=== PATIENT | female | born 1955 | race Caucasian/White ===

== ENCOUNTER 2017-09-29 12:45 | Outpatient (CLI) | payer MEDICARE ==
--- NOTE | 2017-09-29 15:45 | RAD ---
THORACIC SPINE RADIOGRAPHS THREE VIEWS 09/29/17 INDICATION: Thoracic back pain. FINDINGS: Prominent kyphosis of the thoracic spine is present. There is osteopenia. Moderate compressed deformi ty of the mid thoracic spine at the epicenter of the kyphosis is present, in addition to multilevel h eight loss and end plate concavity involving thoracic spine as well as imaged upper lumbar spine. The re is diffuse osseous demineralization. Mild levo curvature of the thoracic spine present. IMPRESSION: Multilevel compression deformities throughout the thoracic spine, as well as within the imaged upper lumbar spine. These findings are age indeterminate. The most pronounced moderate compressed deformity at the mid to lower thoracic spine does appear stable to prior radiograph, 01/21/15. Additional superi mposed acute injuries cannot be excluded. This could be further assessed with MRI, as necessary. POS: [facility]
--- NOTE | 2017-09-29 15:47 | RAD ---
LUMBAR SPINE 2 VIEWS: HISTORY: A 61-year-old female with acute bilateral thoracic back pain. FINDINGS: Severe bone demineralization. Moderate to severe vertical height loss of T12, L1, and L2 with mild v ertical height loss of L4 and L5 stable from 07/28/17. IMPRESSION: Stable multilevel compressed thoracic vertebrae. Significant diffuse bone demineralization. Stable appearance from 07/28/17. POS: [facility]
== END 2017-09-29 12:46 | disposition home or self-care (01) ==
LOC: RAD 12:45
PROVIDERS: ATTEND Family Medicine
DX: M54.6 Pain in thoracic spine (principal); M43.8X4 Other specified deforming dorsopathies, thoracic region
CPT/HCPCS: 72072; 72100

== ENCOUNTER 2018-03-02 10:16 | Outpatient (CLI) | payer MEDICARE | END 2018-03-02 10:17 | disposition home or self-care (01) | LOC: BICMAMMO 10:16 | PROVIDERS: ATTEND Family Medicine | DX: Z12.31 Encounter for screening mammogram for malignant neoplasm of breast (principal); Z13.820 Encounter for screening for osteoporosis; S22.080G Wedge compression fracture of T11-T12 vertebra, subsequent encounter for fracture with delayed healing; M81.0 Age-related osteoporosis without current pathological fracture | CPT/HCPCS: 77063; 77067; 77080 ==

== ENCOUNTER 2018-12-21 08:13 | Inpatient (IN) | payer MEDICARE ==
[2018-12-21] MEDS ORDERED: methylPREDNISolone Sod Succ/PF 125 MG/2 ML VIAL ONE (08:27)
[2018-12-21 08:38] LABS: #Eosinphils 0.7 thou/uL (0.0-0.7); #Lymphocytes 3.2 thou/uL (1.20-3.40); #Monocytes 0.5 thou/uL (0.11-0.59); #Neutrophils 2.7 thou/uL (1.40-6.50); %Basophils 0.6 % (0.0-1.0); %Eosinophils 9.8 % (0.0-10.0); %Lymphocytes 44.9 % (21.0-51.0); %Monocytes 6.9 % (0.0-10.0); %Neutrophils 37.8 % (42.0-75.0); Hemoglobin 12.8 g/dL (12.0-16.0); Mean Corpuscular HGB CONC 31.9 g/dL (32.0-36.0); Mean Corpuscular Hemoglobin 30.4 pg (27.0-31.0); Mean Corpuscular Volume 95.1 fL (78.0-98.0); Mean Platelet Volume 7.4 fL (7.4-10.4); Platelet Count 226 thou/uL (130-400); RBC Distribution Width 11.3 % (11.5-14.5); Red Blood Cell (RBC) Count 4.22 mill/uL (4.20-5.40); White Blood Cell (WBC) Count 7.2 thou/uL (4.8-10.8)
[2018-12-21 08:44] LABS: PTT 29.1 SEC (22.9-36.1); Prothrombin Time 13.3 SEC (12.0-14.7)
[2018-12-21] MEDS ORDERED: Albuterol Sulfate 2.5 mg/3 ml Neb ONE ×2 (08:58→08:59)
[2018-12-21 09:04] LABS: ALT (SGPT) 11 U/L (8-55); AST (SGOT) 34 U/L (5-34); Acetaminophen Less than 6.0 mcg/mL (10.0-30.0); Alcohol Less than 10 mg/dL (Less than 10); Alkaline Phosphatase 73 U/L (40-150); Anion Gap 18 mmol/L (10-20); BUN (Urea Nitrogen) 14 mg/dL (9.8-20.1); Bilirubin, Total 0.3 mg/dL (0.2-1.2); CK (CPK) 75 U/L (29-168); Calc. Creatinine Clearance 0 mL/min (70-130); Calcium 9.5 mg/dL (7.8-10.44); Carbon Dioxide 18 mmol/L (23-31); Chloride 105 mmol/L (98-107); Estimated GFR-MDRD 59; Globulin 2.9 g/dL (2.4-3.5); Glucose 203 mg/dL (80-115); Lipase 126 U/L (8-78); Potassium 4.1 mmol/L (3.5-5.1); Protein, Total 6.9 g/dL (6.0-8.3); Salicylate Less than 8.0 mg/dL (15.0-30.0); Sodium 137 mmol/L (136-145)
[2018-12-21 09:05] LABS: Bilirubin Negative (Negative); Blood, Urine Small (Negative); Clarity CLOUDY (Clear); Glucose, Urine (Dipstick) Negative (Negative); Leukocyte Small (Negative); Nitrite Positive (Negative); Protein, Urine (Dipstick) Negative (Neg-Trace); Specific Gravity, Urine 1.014 (1.002-1.036); Urobilinogen 0.2 mg/dL (0.2-1.0); pH, Urine 5.5 (5.0-9.0)
[2018-12-21 09:07] LABS: Pathc Cast-AUWi Flag 0.29 (0-2.49); RBC/HPF 0-3 HPF (0-3); Squamous Epithelial None Seen HPF (0-3); WBC/HPF 21-50 HPF (0-3)
--- NOTE | 2018-12-21 09:07 | RAD ---
SINGLE VIEW CHEST: HISTORY: Cyanosis and difficulty breathing. Respiratory distress. COMPARISON: 05/06/2014 FINDINGS: A single view of the chest shows a normal sized cardiomediastinal silhouette. This exam is limited s econdary to rotation. There is an endotracheal tube in good position, with its tip at the upper bord er of the clavicles. An NG tube courses off the inferior aspect of the film and is likely within the stomach. There is no evidence of consolidation, mass, or pleural effusion. IMPRESSION: Appropriate visualization of endotracheal tube and nasogastric tube. POS: [facility]
[2018-12-21] MEDS ORDERED: Fentanyl 20 mcg/ml (100 ml CADD) IV PRN (09:08)
[2018-12-21 09:10] LABS: Actual Bicarbonate (HCO3a) 21.3 mEq/L (22-28); Analyzer IN Cardio ER; Base Excess (BEa) -3.9 mEq/L (-2.0 to +3.0); CO2 Tension 39.6 mmHg (35.0-45.0); Calcium, Ionized 1.19 mmol/L (1.12-1.30); Carboxyhemoglobin (COHb) 0.3 gm% (0.0-3.0); Hemoglobin (Hb) 13.2 g/dL (12.0-16.0); O2 Tension (PaO2) 210.5 mmHg (> 80.0); Potassium - ABG Lab 3.82 mmol/L (3.70-5.30); pH, Arterial 7.35 (7.35-7.45)
[2018-12-21 09:15] LABS: Amphetamine Not Detected (NotDetected); Barbiturates Screen Not Detected (NotDetected); Benzodiazepine Screen Not Detected (NotDetected); Cocaine Metabolite Screen Not Detected (NotDetected); Medtox Control Line Valid? VALID (VALID); Medtox Reader # READER 1; Methadone Not Detected (NotDetected); Methamphetamine Not Detected (NotDetected); Opiate Screen Not Detected (NotDetected); Oxycodone Screen Not Detected (NotDetected); Phencyclidine (PCP) Not Detected (NotDetected); THC/Cannabinoid Screen Not Detected (NotDetected); Tricyclic Screen Not Detected (NotDetected)
[2018-12-21 09:18] LABS: Puncture Site RBA
[2018-12-21 09:21] LABS: Bacteria/HPF 4+ HPF (None Seen); Hyaline Casts/LPF 4-6 HYALINE CAST LPF (0-3 Hyaline)
--- NOTE | 2018-12-21 10:14 | CT ---
CT BRAIN WITHOUT CONTRAST: HISTORY: Altered mental status. FINDINGS: The ventricular and cisternal system shows fairly age appropriate change. There are no signs of intr acerebral hemorrhage or extraaxial fluid collection. The mastoid air cells are clear. There is exte nsive mucosal disease within the bilateral ethmoid and maxillary sinuses, with less pronounced change s of the sphenoid air cells. IMPRESSION: 1. No acute intracranial abnormalities. 2. Extensive sinus disease. POS: [facility]
[2018-12-21] MEDS ORDERED: ISOVUE-370 76%-LOCM 1 ML ONE (10:27)
[2018-12-21] MEDS ORDERED: Azithromycin 500 MG VIAL ONE (10:43)
[2018-12-21] MEDS ORDERED: cefTRIAXone\\ROCEPHIN 2 GM VIAL ONE (10:43)
[2018-12-21] MEDS ORDERED: PROPOFOL 0 ML ONE (11:11)
[2018-12-21] MEDS ORDERED: PROPOFOL 20 ML ONE (11:11)
--- NOTE | 2018-12-21 11:50 | CT ---
CTA CHEST WITH CONTRAST: Date: 12/21/18 Multiple axial tomograms obtained through the chest following angio protocol with multiplanar reconst ruction and 3D postprocessing. INDICATION: Hypoxia. Shortness of breath. FINDINGS: Pulmonary arteries show adequate opacification. No evidence of pulmonary embolus identified. Thoracic aorta is unremarkable with no evidence of dissection or aneurysm. There is abnormal soft tissue density in the left hilum, which encompasses left lower lobe bronchus, and there is streaky alveolar consolidation/infiltrate extending from the infrahilar region on the le ft posteriorly into the left lower lobe posterior lung base. The density in the right hilar region is worrisome for neoplasm. Consider bronchoscopy as this lesion does encompass and narrow the right low er lobe bronchus. Images through upper abdomen show low density lesions in the liver which were present previously and suggest cyst. IMPRESSION: 1. No evidence of pulmonary embolus. 2. Abnormal soft tissue density in the left hilar region, worrisome for mass or adenopathy. This sof t tissue density does encompass and narrow a left lower lobe bronchus. There is peripheral infiltrate and/or atelectasis extending into the posterior left lower lobe. Consider bronchoscopy. POS: [facility]
[2018-12-21] MEDS ORDERED: Ondansetron PF 4 MG/2 ML Vial IVP PRN (12:18)
[2018-12-21] MEDS ORDERED: Ondansetron ODT 4 MG TAB PO PRN (12:18)
[2018-12-21 12:39] VITALS: BMI 27.3
[2018-12-21 12:48] LABS: Lactic Acid 3.7 mmol/L (0.5-2.2)
[2018-12-21] MEDS ORDERED: Sodium Chloride 0.9% 1,000 ML IV SCH (13:30)
[2018-12-21] MEDS ORDERED: Midazolam HCl 2 mg/2 ml Vial ONE (15:22)
[2018-12-21] MEDS ORDERED: SYSTANE 3.5 GM TUBE EA EYE PRN (15:27)
[2018-12-21] MEDS ORDERED: Ventilator Sedation Protocol 1 EACH FS SCH (15:30)
[2018-12-21] MEDS ORDERED: Midazolam HCl 2 mg/2 ml Vial SLOW IVP SCH (15:30)
[2018-12-21] MEDS ORDERED: DISCONTINUE PREVIOUS NARCOTIC PAIN MEDICATIONS AND BENZODIAZEPINES FS SCH (15:46)
[2018-12-21] MEDS ORDERED: Fentanyl BOLUS 250 ML IVPB PRN ×2 (15:46→15:51)
[2018-12-21] MEDS ORDERED: Propofol 1,000 MG/100 ML VIAL IV PRN (15:46)
[2018-12-21] MEDS ORDERED: fentaNYL Citrate/PF 2,000 MCG in Sodium Chloride 0.9% 60 ML IV SCH ×2 (15:46→16:00)
[2018-12-21] MEDS ORDERED: Propofol BOLUS 1,000 MG/100 ML VIAL IV PRN (15:46)
[2018-12-21] MEDS ORDERED: Lorazepam 2 MG/ML VIAL SLOW IVP PRN (15:46)
[2018-12-21] MEDS ORDERED: Morphine 2 MG/ML SYRINGE SLOW IVP PRN (15:49)
--- NOTE | 2018-12-21 16:00 | CON ---
DATE OF CONSULTATION: 12/21/2018 SERVICE: Pulmonary Medicine. REASON FOR CONSULT: Respiratory failure. HISTORY OF PRESENT ILLNESS: The patient is a 63-year-old white female with past medical history significant for asthma. For the last 2-3 months, she has had increasing cough and congestion. She has had nasal discharge. She presented to the emergency department because she had a sudden increase in respiratory disturbances. She has been relying basically on p.r.n. medications like DuoNeb. She has been out of her long-acting controlling medication (Symbicort). They sent a refill request out and that medicine should be in the mail, but did not arrive quickly enough. She subsequently developed so much failure that EMS services were contacted. When they got there, her saturations were in the 60s. As such, she was intubated and brought to the emergency department. Blood pressures remained stable throughout. She got some empiric antibiotics, nebulized medications, and some steroids. She is currently intubated. She is able to follow some simple commands. She did not require any sedation, which is quite remarkable. She denies any current fevers or chills. She talked to us about some of her different allergies. She has an allergy to Valium. That being said, it only causes hallucination. We will need to clarify her allergies when she is out of the hospital this time around. Our therapeutic options are actually becoming quite limited because of her histories. PAST MEDICAL HISTORY: 1. Asthma. 2. Hypertension. 3. Dyslipidemia. 4. Chronic back pain. 5. Degenerate joint disease. PAST SURGICAL HISTORY: 1. Cholecystectomy. 2. Colonoscopy. FAMILY HISTORY: Noncontributory. SOCIAL HISTORY: Negative for alcohol, tobacco, or illicit drug use. She is a lifelong nonsmoker. She has no exposure to chemicals, dust, asbestos, or tuberculosis. ALLERGIES: MULTIPLE ALLERGIES ARE LISTED INCLUDING CIPRO, CLINDAMYCIN, CODEINE, PENICILLIN, VICODIN, AMLODIPINE, LISINOPRIL, LOSARTAN, AND VALIUM. MEDICATIONS: List of her inpatient medications was reviewed. No specific updates were made at this time. REVIEW OF SYSTEMS: Review of systems is cannot be obtained as the patient is currently intubated under the influence of some sedation. PHYSICAL EXAMINATION: VITAL SIGNS: Afebrile, pulse 111, blood pressure 132/75, respirations 15, saturation 99% on 21% FiO2 and a PEEP of 5. GENERAL: The patient is somnolent. She is in no apparent distress. LUNGS: Excellent air entry. There is no prolonged expiratory phase or wheezing present. There are extensive rhonchi noted. HEART: Tachycardic. Regular. ABDOMEN: Soft, nontender, nondistended. Bowel sounds are positive. MUSCULOSKELETAL: No cyanosis or clubbing. There is no pitting in the bilateral lower extremities. NEUROLOGIC: Grossly nonfocal. LABORATORY DATA: WBC 7.2, hemoglobin 12.8, and platelets 226,000. INR 1.0. PH 7.35, pCO2 40, PO2 210. This was on 50% FiO2 at that time. Basic metabolic profile and liver function studies are otherwise unremarkable. Lactate was 5.5, but was downtrending at 3.7. Lipase 126. Urinalysis is positive for white blood cells of 21-50. Nitrites are positive. Leukocyte esterase is minimal. Toxicology was unremarkable including urine drug screen, alcohol, acetaminophen, and salicylates. Interestingly, methadone was not detected. IMAGIN. CT of the brain demonstrates no acute intracranial abnormality. 2. Chest x-ray demonstrates volume loss in the left base. She has a left mainstem bronchus endobronchial irregularity. ASSESSMENT: 1. Asthma with acute exacerbation. 2. Left mainstem bronchus lesion on CT scan. 3. Acute hypoxic respiratory failure, resolved. 4. Severe sepsis. 5. Sinusitis. DISCUSSION AND PLAN: We will proceed with bronchoscopy. This is primarily for diagnostic and possibly therapeutic purposes. We will send the sample off for Gram stain and culture. Otherwise, supportive measures will be continued. We will treat her sinusitis with fluoroquinolone if she can tolerate it. Pulmonary/Critical Care will continue to follow along. Multiple ventilator adjustments have been made in order to improve on the patient comfort. We will consider extubating her tomorrow morning. CRITICAL CARE TIME: 30 minutes. Job ID: [id number] [facility]
--- NOTE | 2018-12-21 16:31 | HP ---
CHIEF COMPLAINT: Shortness of breath. HISTORY OF PRESENT ILLNESS: This patient is a 63-year-old female, who presented via the emergency department. This patient reports that she has been having chronic shortness of breath for an extended period of time and intermittently use some home oxygen. The etiology of her lung disease is not fully clear, but apparently she has some type of COPD syndrome, although she has never smoked and the family is unaware of her ever having any significant prior toxic or chemical exposures. The patient started coughing significantly about a month ago. During that time, she has been producing sputum, occasionally discolored, occasionally clear. She has not had significant fevers, but has been short of breath. They saw Dr. Altman, who has given her steroid shots a couple of different times and ordered some Symbicort, although that never arrived at the patient's home before she became too ill. She subsequently became worse today and EMS was called. When they arrived, the patient was very tachypneic, had some respiratory distress. She was somewhat cyanotic and O2 sats were in the 60s and the patient was intubated in the field. REVIEW OF SYSTEMS: The patient's does report that she has had significant weight loss over the past couple of months, although he reports she has been actually eating quite well. Overall, her appetite has been good. The remainder of the review of systems is limited because of the patient's intubated status. However, the family is unaware of any other problems. PAST MEDICAL HISTORY: Notable for degenerative disk disease, for which she wear some type spine. She has hypertension, hyperlipidemia for which she takes no medications. She also has the above-mentioned COPD. PAST SURGICAL HISTORY: , cholecystectomy, knee surgery, and kidney stone removal. FAMILY HISTORY: The patient's biological father many years ago with no specific known medical problems. Mother had cancer, which they believe may have been in her stomach and she in 2007. Her daughters had thyroid cancer. SOCIAL HISTORY: The patient is a nonsmoker, nondrinker, and nondrug user. She is . She is full code. Her and daughter are present to be her surrogate decision makers. ALLERGIES: VICODIN, AMLODIPINE, CIPROFLOXACIN, CLINDAMYCIN, CODEINE, DIAZEPAM, FENTANYL, FLUTICASONE FROM [facility], HYDROCODONE, LISINOPRIL, MORPHINE, PENICILLINS, AND VILANTEROL FROM THE [facility]. CURRENT MEDICATIONS: 1. Simvastatin 10 mg at bedtime. 2. B12 of 500 mcg daily. 3. Ventolin inhaler. 4. Lasix 20 daily. 5. Coreg 10 mg p.o. daily. 6. Hydralazine 10 mg p.o. t.i.d. 7. Methadone 2.5 mg daily. 8. Nexium 40 mg daily. 9. DuoNeb q.i.d. 10. Symbicort 2 puffs two inhalations b.i.d. 11. Albuterol HFA. PHYSICAL EXAMINATION: VITAL SIGNS: Temperature 97.4, pulse 109, respirations 12, O2 sat is 91%, and blood pressure 123/86. GENERAL APPEARANCE: Age-appropriate female. She is on the ventilator. She is in no distress. She is awake and able to interact and communicate with nods. HEENT: Pupils are reactive. NECK: Supple and symmetric. HEART: Regular rate and rhythm without murmurs, gallops, or rubs. LUNGS: Clear bilaterally, although exam is somewhat limited. There are no wheezes or rales noted. ABDOMEN: Soft, nontender, and nondistended. EXTREMITIES: Warm and dry with no cyanosis, clubbing, or edema. NEUROLOGICAL: The patient appears to be fully intact with no focal deficits. PSYCH: The patient is managed to be quite calm and appropriate on the ventilator. LABORATORY DATA: White count 7.2, hemoglobin 12.8, and platelets 226. INR is 1.0. Blood gas shows pH of 7.35, pCO2 of 39.6, and pO2 of 210. Sodium 137, potassium 4.1, chloride 105, CO2 of 18, BUN 14, creatinine 0.95, glucose 203. Lactic acid 5.5. AST 34, ALT 11. Troponin 0.014. Albumin 4.0. Lipase is 126. Urinalysis shows white counts 21 to 50, red cells 0 to 3, small leukocyte esterase, and positive nitrites. Tox screen is negative. IMAGING DATA: Chest x-ray, tube is in appropriate positioning as is NG tube. CT angio of the chest reveals no pulmonary embolus. There appears to be something of a soft tissue mass occluding the left lower lobe bronchus with postobstructive infiltrate. CT scan of the brain, no acute intracranial abnormalities. Extensive sinus disease. IMPRESSION AND PLAN: 1. Acute hypoxic respiratory failure. The patient is on ventilator. Pulmonary Critical Care following. The likely source is the chronic lung disease exacerbated by left lower lobe occlusion or bronchial occlusion. 2. Left lower lobe mass, on CT scan cannot be confirmed. May need bronchoscopy in order to further elucidate. 3. Postobstructive pneumonia. Continue with azithromycin and Rocephin for now. 4. Chronic lung disease, unclear etiology, but appears to be some type of obstructive pulmonary disease. 5. Continue nebs, steroids, and oxygen as needed. 6. History of hyperlipidemia. We will continue those medications when she is appropriately able to take p.o.'s. 7. Hypertension. We will continue to monitor. May need to treat IV for the time being. Job ID: [id number]
[2018-12-21] MEDS: methylPREDNISolone Sod Succ 40 MG VIAL IVP SCH (17:29)
--- NOTE | 2018-12-21 18:00 | OP ---
DATE OF PROCEDURE: 12/21/2018 SERVICE: Pulmonary Medicine. PROCEDURE PERFORMED: Fiberoptic bronchoscopy with; 1. Visual airway inspection. 2. Bronchoalveolar lavage from the left lung. PREPROCEDURE DIAGNOSES: 1. Pulmonary infiltrate. 2. Endobronchial irregularity. POSTPROCEDURE DIAGNOSES: 1. Pulmonary infiltrate. 2. Mucus plugging of the left lower lobe bronchus. MEDICATION USED: Versed 6 mg IV push x1. PREANESTHESIA ASSESSMENT: H and P had been performed. The patient's medications and allergies were reviewed. Informed consent was obtained after discussing the risks, benefits, and rationale for performing the procedure with the patient's immediate family member. DESCRIPTION OF PROCEDURE: A time-out was performed identifying the correct procedure and patient with name and date of . A diagnostic fiberoptic bronchoscope was introduced through the 7.0 endotracheal tube. The bronchoscope was advanced to the trachea, where multiple aliquots of saline were administered to the bilateral lung boland. After significant suctioning of diffuse mucus plugs, tracheobronchial tree inspection was carried out with clear identification of the right upper lobe, right middle lobe, right lower lobe, left upper lobe, lingula, and left lower lobe. No endobronchial disease was identified. I paid careful attention to the left lower lobe bronchus. Hemostasis was verified, and the bronchoscope was subsequently removed from the patient. FINDINGS: 1. No endobronchial disease was identified. 2. Secretions were moderate, but quite thick. SPECIMENS OBTAINED: BAL for Gram stain and culture from the left lower lobe. COMPLICATIONS: None. ESTIMATED BLOOD LOSS: None. DISPOSITION: The patient will recover in the ICU on mechanical ventilation. Job ID: [id number]
[2018-12-21] MEDS: Famotidine/PF 20 mg/2ml Vial SLOW IVP SCH (19:18)
[2018-12-21] MEDS ORDERED: Prevnar 13-Val Conj/PF 0.5 ML SYRINGE IM ONE (21:00)
[2018-12-22] MEDS ORDERED: Ondansetron PF 4 MG/2 ML Vial SLOW IVP PRN (01:54)
[2018-12-22] MEDS ORDERED: HYDROmorphone 0.5 MG/0.5 ML SYRINGE SLOW IVP PRN (01:55)
[2018-12-22] MEDS: methylPREDNISolone Sod Succ 40 MG VIAL IVP SCH ×2 (05:07)
[2018-12-22 05:44] LABS: #Lymphocytes 0.9 thou/uL (1.20-3.40); #Monocytes 0.1 thou/uL (0.11-0.59); #Neutrophils 11.6 thou/uL (1.40-6.50); %Monocytes 0.6 % (0.0-10.0); %Neutrophils 92.5 % (42.0-75.0); Hemoglobin 13.1 g/dL (12.0-16.0); Mean Corpuscular Hemoglobin 30.3 pg (27.0-31.0); Mean Corpuscular Volume 91.8 fL (78.0-98.0); Mean Platelet Volume 7.2 fL (7.4-10.4); Platelet Count 239 thou/uL (130-400); RBC Distribution Width 11.2 % (11.5-14.5); Red Blood Cell (RBC) Count 4.31 mill/uL (4.20-5.40); White Blood Cell (WBC) Count 12.6 thou/uL (4.8-10.8)
[2018-12-22 06:01] LABS: ALT (SGPT) 14 U/L (8-55); AST (SGOT) 39 U/L (5-34); Albumin 3.8 g/dL (3.4-4.8); Alkaline Phosphatase 69 U/L (40-150); Anion Gap 17 mmol/L (10-20); BUN (Urea Nitrogen) 12 mg/dL (9.8-20.1); Bilirubin, Total 0.4 mg/dL (0.2-1.2); Calc. Creatinine Clearance 74 mL/min (70-130); Calcium 9.4 mg/dL (7.8-10.44); Carbon Dioxide 17 mmol/L (23-31); Chloride 108 mmol/L (98-107); Estimated GFR-MDRD 66; Glucose 119 mg/dL (80-115); Potassium 3.7 mmol/L (3.5-5.1); Protein, Total 6.8 g/dL (6.0-8.3); Sodium 138 mmol/L (136-145)
[2018-12-22] MEDS: Famotidine/PF 20 mg/2ml Vial SLOW IVP SCH (08:57)
[2018-12-22] MEDS: Enoxaparin Sodium 40 MG/0.4 ML SYRINGE SC SCH (08:57)
[2018-12-22] MEDS ORDERED: Azithromycin 500 MG in Sodium Chloride 0.9% 250 ML 250 ML IVPB SCH (10:00)
--- NOTE | 2018-12-22 10:49 | PRG ---
DATE OF SERVICE: 12/22/2018 SERVICE: Pulmonary Medicine. INTERVAL HISTORY: The patient has done absolutely remarkable overnight. Her lungs have opened up very nicely. She does not have nearly as long as a prolonged expiratory phases, we noted on mechanical ventilator yesterday. She cannot provide any additional elements of the history. That being said, she indicates that she feels like she is breathing for the most part fairly comfortably. Denies any current chest pain, nausea, vomiting, fevers, or chills. There were no overnight events. PHYSICAL EXAMINATION: VITAL SIGNS: Afebrile, pulse 95, blood pressure 116/65, respirations 12, saturation 100% on 31% FiO2, and a PEEP of 5. GENERAL: The patient is intubated and sedated. There is a prolonged expiratory phase still. Polyphonic wheezing is noted. No crackles or rhonchi appreciated. HEART: Normal rate, regular. ABDOMEN: Soft, nontender, nondistended. Bowel sounds are positive. MUSCULOSKELETAL: No cyanosis or clubbing. No pitting in the bilateral lower extremities. NEUROLOGIC: Grossly nonfocal. LABORATORY DATA: WBC 12.6, hemoglobin 13.1, and platelets 239,000. INR 1.0. PH 7.35, pCO2 39, PO2 210. Basic metabolic profile is otherwise unremarkable with bicarb is stable at 17, anion gap stable at 17. Liver function studies are completely unremarkable. Urine culture is growing E. coli. Blood culture x2 and respiratory culture negative to date. ASSESSMENT: 1. Asthma with acute exacerbation, resolving. 2. Endobronchial mucus plugging, status post bronchoscopy, resolved. 3. Acute hypoxic respiratory failure, resolved. 4. Urinary tract infection secondary to Escherichia coli. 5. Sinusitis based on CT scan. DISCUSSION AND PLAN: We will continue our empiric antibiotic that should cover both our E coli organism and sinusitis. We will tailor our antibiotic choice to the sensitivities that result. I will continue her antibiotics, nebulized medications, and steroids. Pulmonary Critical Care will continue to follow along. I will give her a spontaneous breathing trial after a sedation holiday. If she meets criteria, extubation will be considered. CRITICAL CARE TIME: 30 minutes. Job ID: [id number]
[2018-12-22] MEDS ORDERED: cefTRIAXone\\ROCEPHIN 1 GM in Sodium Chloride 0.9% 100 ML IVPB SCH (11:00)
[2018-12-22] MEDS ORDERED: predniSONE 20 MG TAB PO SCH (11:15)
[2018-12-22] MEDS ORDERED: NIFEdipine XL 30 MG TAB PO SCH (11:15)
--- NOTE | 2018-12-22 13:28 | PDOC.PN ---
- Subjective Encounter Start Date: 12/22/18 Encounter Start Time: 11:00 Extubated. Throat hurts mildly. Otherwise feeling generally well. - Objective Resuscitation Status - Order Detail: 12/21/18 13:23 Resuscitation Status Routine Resuscitation Status: FULL: Full Resuscitation Discussed with: Patient's family Vital Signs & Weight: Vital Signs (12 hours) Pulse Resp BP Pulse Ox 12/22/18 13:01 106 H 22 H 99 12/22/18 11:24 113 H 128/67 12/22/18 09:55 95 12/22/18 09:30 113 H 128/67 12/22/18 08:00 14 12/22/18 07:41 93 120/67 12/22/18 07:30 100 12/22/18 06:00 13 12/22/18 04:00 13 12/22/18 02:42 132 H 12/22/18 02:00 11 L Weight Weight 158 lb 11.725 oz Most Recent Monitor Data Heart Rate from ECG 109 NIBP 119/77 NIBP BP-Mean 91 Respiration from ECG 25 SpO2 99 I&O: 12/21/18 12/22/18 12/23/18 06:59 06:59 06:59 Intake Total 695.7 50 Output Total 1880 230 Balance -1184.3 -180 Result Diagrams: 12/22/18 05:34 12/22/18 05:34 Phys Exam - Physical Examination Constitutional: NAD Respiratory: no rales, no rhonchi Minimal scattered wheezes Cardiovascular: RRR, no significant murmur Gastrointestinal: soft, non-tender, no distention, positive bowel sounds Musculoskeletal: no edema Neurological: non-focal Psychiatric: normal affect, A&O x 3 Dx/Plan (1) Acute and chronic respiratory failure with hypoxia Code(s): J96.21 - ACUTE AND CHRONIC RESPIRATORY FAILURE WITH HYPOXIA Status: Acute (2) Mucus plugging of bronchi Code(s): J98.09 - OTHER DISEASES OF BRONCHUS, NOT ELSEWHERE CLASSIFIED Status : Acute (3) Asthma Code(s): J45.909 - UNSPECIFIED ASTHMA, UNCOMPLICATED Status: Acute (4) Sinusitis Code(s): J32.9 - CHRONIC SINUSITIS, UNSPECIFIED Status: Acute (5) E. coli UTI Code(s): N39.0 - URINARY TRACT INFECTION, SITE NOT SPECIFIED; B96.20 - UNSP ESCHERICHIA COLI THE CAUSE OF DISEASES CLASSD ELSWHR Status: Acute - Plan * Doing well. Extubated this morning after mucous plug addressed endoscopically yesterday. * E coli on Ucx. Levaquin. * Sinusitis. Levaquin. * Wean oxygen and increase activity and diet as tolerated. * Outpatient follow up to treat vernon.
[2018-12-23] MEDS: Enoxaparin Sodium 40 MG/0.4 ML SYRINGE SC SCH (08:48)
[2018-12-23] MEDS: NIFEdipine XL 30 MG TAB PO SCH (08:48)
[2018-12-23] MEDS: predniSONE 20 MG TAB PO SCH (08:48)
[2018-12-23] MEDS: Acetaminophen 500 MG TAB PO PRN (11:18)
--- NOTE | 2018-12-23 13:37 | PDOC.PN ---
- Subjective Encounter Start Date: 12/23/18 Encounter Start Time: 13:36 Feeling better. Had an episode of SOB this morning with sats at 88%. Improved after breathing treatment. Good now. Looking forward to a shower. - Objective Resuscitation Status - Order Detail: 12/21/18 13:23 Resuscitation Status Routine Resuscitation Status: FULL: Full Resuscitation Discussed with: Patient's family Vital Signs & Weight: Vital Signs (12 hours) Temp Pulse Resp BP Pulse Ox 12/23/18 11:29 98.4 F 88 18 114/75 94 L 12/23/18 09:49 93 L 12/23/18 08:29 95 12/23/18 08:28 84 16 12/23/18 08:25 98.2 F 85 20 120/75 93 L 12/23/18 05:18 98 20 98 12/23/18 04:48 95 12/23/18 04:46 114 H 24 H 88 L 12/23/18 04:00 97.7 F 98 22 H 129/82 91 L Weight Weight 161 lb Most Recent Monitor Data Heart Rate from ECG 97 NIBP 126/77 NIBP BP-Mean 93 Respiration from ECG 23 SpO2 95 I&O: 12/22/18 12/23/18 12/24/18 06:59 06:59 06:59 Intake Total 695.7 321 Output Total 1880 925 Balance -1184.3 -604 Result Diagrams: 12/22/18 05:34 12/22/18 05:34 Phys Exam - Physical Examination Constitutional: NAD Respiratory: no wheezing, no rales, no rhonchi Slightly diminished at bases (kyphotic) Cardiovascular: RRR, no significant murmur, no rub Gastrointestinal: soft, non-tender, no distention, positive bowel sounds Musculoskeletal: no edema Thoracic kyphosis Neurological: non-focal Psychiatric: normal affect, A&O x 3 Dx/Plan (1) Acute and chronic respiratory failure with hypoxia Code(s): J96.21 - ACUTE AND CHRONIC RESPIRATORY FAILURE WITH HYPOXIA Status: Resolved (2) Mucus plugging of bronchi Code(s): J98.09 - OTHER DISEASES OF BRONCHUS, NOT ELSEWHERE CLASSIFIED Status : Resolved (3) Asthma Code(s): J45.909 - UNSPECIFIED ASTHMA, UNCOMPLICATED Status: Acute (4) Sinusitis Code(s): J32.9 - CHRONIC SINUSITIS, UNSPECIFIED Status: Acute (5) E. coli UTI Code(s): N39.0 - URINARY TRACT INFECTION, SITE NOT SPECIFIED; B96.20 - UNSP ESCHERICHIA COLI THE CAUSE OF DISEASES CLASSD ELSWHR Status: Acute - Plan * DC Bravo. * Ambulate. * DC Levaquin as E coli is resistant. Rocephin. * Will need oral antibiotic option at discharge. Likely cephalosporin to cover sinusitis and E. coli. * Likely discharge in am.
[2018-12-23] MEDS: cefTRIAXone\\ROCEPHIN 1 GM in Sodium Chloride 0.9% 100 ML IVPB SCH (16:43)
--- NOTE | 2018-12-23 20:14 | PRG ---
DATE OF SERVICE: 12/23/2018 SUBJECTIVE: Pulmonary Medicine. INTERVAL HISTORY: The patient is doing fine from respiratory standpoint. Breathing comfortably. There has been no interval change to her condition. Her strength seems to be improving a little bit. Otherwise, she does not have any specific complaints. PHYSICAL EXAMINATION: VITAL SIGNS: Afebrile. Pulse 87, blood pressure 116/69, respirations 18, saturation 95% on room air. GENERAL: The patient is awake and alert, in no apparent distress. LUNGS: Decent air entry. There is a little bit of rhonchi. No prolonged expiratory phase or wheezing is appreciated. HEART: Normal rate, regular. ABDOMEN: Soft, nontender, nondistended. Bowel sounds are positive. MUSCULOSKELETAL: No cyanosis or clubbing. No pitting in the bilateral lower extremities. NEUROLOGIC: Grossly nonfocal. ASSESSMENT: 1. Asthma with acute exacerbation, resolved. 2. Endobronchial mucus plug, status post bronchoscopy, resolved. 3. Acute hypoxic respiratory failure, resolved. 4. Urinary tract infection secondary to Escherichia coli. 5. Sinusitis, based on recent CT of the head. DISCUSSION AND PLAN: The patient continues to do quite well. We will continue our steroids, nebulized medications, and antibiotics. We are going to continue our mobilization efforts through time. I will repeat laboratories tomorrow morning. If everything looks fantastic, she may get considered for discharge in the morning. Job ID: [id number]
[2018-12-24 06:04] LABS: #Basophils 0.1 thou/uL (0.0-0.2); #Lymphocytes 1.5 thou/uL (1.20-3.40); #Monocytes 0.4 thou/uL (0.11-0.59); %Basophils 0.9 % (0.0-1.0); %Eosinophils 0.2 % (0.0-10.0); %Lymphocytes 21.5 % (21.0-51.0); %Monocytes 5.2 % (0.0-10.0); %Neutrophils 72.2 % (42.0-75.0); Hemoglobin 12.3 g/dL (12.0-16.0); Mean Corpuscular HGB CONC 32.8 g/dL (32.0-36.0); Mean Corpuscular Hemoglobin 30.8 pg (27.0-31.0); Mean Corpuscular Volume 93.8 fL (78.0-98.0); Mean Platelet Volume 7.5 fL (7.4-10.4); Platelet Count 203 thou/uL (130-400); RBC Distribution Width 11.5 % (11.5-14.5); Red Blood Cell (RBC) Count 3.98 mill/uL (4.20-5.40); White Blood Cell (WBC) Count 6.9 thou/uL (4.8-10.8)
[2018-12-24 06:25] LABS: Anion Gap 10 mmol/L (10-20); BUN (Urea Nitrogen) 18 mg/dL (9.8-20.1); Calc. Creatinine Clearance 87 mL/min (70-130); Calcium 9.1 mg/dL (7.8-10.44); Carbon Dioxide 27 mmol/L (23-31); Chloride 108 mmol/L (98-107); Estimated GFR-MDRD 79; Glucose 92 mg/dL (80-115); Magnesium 2.5 mg/dL (1.6-2.6); Sodium 141 mmol/L (136-145)
[2018-12-24 06:26] LABS: Phosphorus 2.9 mg/dL (2.3-4.7)
[2018-12-24] MEDS: NIFEdipine XL 30 MG TAB PO SCH (09:09)
[2018-12-24] MEDS: predniSONE 20 MG TAB PO SCH (09:09)
[2018-12-24] MEDS: Enoxaparin Sodium 40 MG/0.4 ML SYRINGE SC SCH (09:09)
--- NOTE | 2018-12-24 11:28 | PDOC.PN ---
- Subjective Encounter Start Date: 12/24/18 Encounter Start Time: 11:27 Subjective: minimal cough, no fever, etc - Objective Resuscitation Status - Order Detail: 12/21/18 13:23 Resuscitation Status Routine Resuscitation Status: FULL: Full Resuscitation Discussed with: Patient's family MAR Reviewed: Yes Vital Signs & Weight: Vital Signs (12 hours) Temp Pulse Resp BP Pulse Ox 12/24/18 11:24 98.0 F 96 16 139/80 96 12/24/18 07:28 80 16 12/24/18 07:15 97.9 F 77 16 114/75 95 12/24/18 04:28 97.7 F 80 16 117/78 97 12/24/18 01:15 92 L 12/24/18 00:22 97.9 F 76 16 129/79 98 Weight Weight 161 lb 14.4 oz Most Recent Monitor Data Heart Rate from ECG 97 NIBP 126/77 NIBP BP-Mean 93 Respiration from ECG 23 SpO2 95 I&O: 12/23/18 12/24/18 12/25/18 06:59 06:59 06:59 Intake Total 321 Output Total 925 1100 Balance -604 -1100 Result Diagrams: 12/24/18 05:17 12/24/18 05:17 Phys Exam - Physical Examination Neck: no JVD Respiratory: clear to auscultation bilateral Cardiovascular: RRR, no significant murmur Gastrointestinal: soft, positive bowel sounds Musculoskeletal: no edema Dx/Plan (1) Asthma Code(s): J45.909 - UNSPECIFIED ASTHMA, UNCOMPLICATED Status: Acute Qualifiers: Asthma severity: severe Asthma persistence: unspecified Asthma complication type: with acute exacerbation Qualified Code(s): J45.901 - Unspecified asthma with (acute) exacerbation (2) E. coli UTI Code(s): N39.0 - URINARY TRACT INFECTION, SITE NOT SPECIFIED; B96.20 - UNSP ESCHERICHIA COLI THE CAUSE OF DISEASES CLASSD ELSWHR Status: Acute (3) Acute and chronic respiratory failure with hypoxia Code(s): J96.21 - ACUTE AND CHRONIC RESPIRATORY FAILURE WITH HYPOXIA Status: Resolved (4) Mucus plugging of bronchi Code(s): J98.09 - OTHER DISEASES OF BRONCHUS, NOT ELSEWHERE CLASSIFIED Status : Resolved (5) Dehydration Code(s): E86.0 - DEHYDRATION Status: Resolved (6) Lactic acidosis Code(s): E87.2 - ACIDOSIS Status: Acute - Plan cont antibx for UTI -: cont nebs, LABA, steroids -: discusss with ditch repairer * .
[2018-12-24] MEDS: Acetaminophen 500 MG TAB PO PRN (11:32)
[2018-12-24] MEDS: cefTRIAXone\\ROCEPHIN 1 GM in Sodium Chloride 0.9% 100 ML IVPB SCH (17:36)
--- NOTE | 2018-12-24 17:40 | PRG ---
DATE OF SERVICE: 12/24/2018 SERVICE: Pulmonary Medicine. INTERVAL HISTORY: The patient is doing really well from respiratory standpoint. She is actually back to baseline from her breathing standpoint. Her strength is not 100% yet. She is asking to either go home today or tomorrow. I did not want to elizabeth anything. As such, I have convinced her to stay another day because she has really come a long way and was extremely sick a couple of days ago. PHYSICAL EXAMINATION: VITAL SIGNS: Afebrile, pulse 98, blood pressure 115/62, respirations are 16, and saturation 93% on room air. GENERAL: The patient is awake and alert, in no apparent distress. LUNGS: Much improved air entry. There is no prolonged expiratory phase today. I really do not hear any wheezing or rhonchi. HEART: Normal rate. Regular. ABDOMEN: Soft, nontender, and nondistended. Bowel sounds are positive. MUSCULOSKELETAL: No cyanosis or clubbing. No pitting in the bilateral lower extremities. NEUROLOGIC: Grossly nonfocal. LABORATORY DATA: WBC 6.9, hemoglobin 12.3, and platelets are 203,000. Basic metabolic profile is otherwise unremarkable. Magnesium and phosphorous fall within normal limits. E. coli is growing in urine. Blood cultures x2 and respiratory cultures are unremarkable today. ASSESSMENT: 1. Asthma with acute exacerbation, resolved. 2. Endobronchial mucus plug, status post therapeutic bronchoscopy. 3. Acute hypoxic respiratory failure, resolved. 4. Urinary tract infection secondary to Escherichia coli. 5. Sinusitis based on recent CT scan. DISCUSSION AND PLAN: I will add Singulair to her outpatient medications. The patient is currently out of her Symbicort. If she leaves the hospital today, she will need a prescription for both. We need to give her a 10-day course of prednisone taper. We can do five days of 40 mg followed by an additional five days of 20 mg treating her asthma exacerbation. If she remains in-house, I will continue to follow, but assuming all goes well, she will be stable for transition out of the hospital in the morning. Job ID: [id number]
[2018-12-24] MEDS: Cefdinir 300 MG CAP PO SCH (20:31)
[2018-12-24] MEDS ORDERED: Montelukast Sodium 10 mg Tablet PO SCH (21:00)
[2018-12-25] MEDS: Enoxaparin Sodium 40 MG/0.4 ML SYRINGE SC SCH (08:51)
[2018-12-25] MEDS: Cefdinir 300 MG CAP PO SCH (08:52)
[2018-12-25] MEDS: NIFEdipine XL 30 MG TAB PO SCH (08:52)
[2018-12-25] MEDS: predniSONE 20 MG TAB PO SCH (08:52)
--- NOTE | 2018-12-25 12:23 | DIS ---
DATE OF ADMISSION: 12/21/2018 DATE OF DISCHARGE: 12/25/2018 PRIMARY CARE PROVIDER: Nii Altman M.D. DISPOSITION: Discharged to home. FINAL DIAGNOSES: 1. Acute respiratory failure with hypoxia. 2. Bronchial plug. 3. Acute exacerbation of asthma. 4. Escherichia coli urinary tract infection. 5. Lactic acidosis. 6. Hypertension. 7. Dyslipidemia. DISCHARGE MEDICATIONS: 1. Zocor 10 mg daily. 2. Ventolin HFA 2 puffs q.6 hours p.r.n. 3. Lasix 20 mg daily. 4. Hydralazine 10 mg t.i.d. 5. Nexium 40 mg daily. 6. DuoNeb 3 mL q.i.d. 7. Symbicort 160/4.5 two puffs b.i.d. 8. Prednisone 40 mg daily for 5 days, then 20 mg a day for 5 days and stop. 9. Procardia XL 30 mg daily. 10. Singulair 10 mg daily. 11. Omnicef 300 mg p.o. b.i.d. for 5 days. ALLERGIES: 1. AMLODIPINE. 2. CIPRO. 3. CLINDAMYCIN. 4. CODEINE. 5. DIAZEPAM. 6. FENTANYL. 7. HYDROCODONE. 8. FLUTICASONE. 9. LISINOPRIL. 10. MORPHINE. 11. PENICILLINS. 12. VILANTEROL PER BREO ELLIPTA. PENDING AT TIME OF DISCHARGE: Nothing. DIET: Heart healthy. CODE STATUS: Full. HOSPITAL COURSE: The patient admitted to the [facility] through [facility]. She presented with shortness of breath. She has a history of asthma/COPD, is on home O2. On presentation, chest x-ray was done after the patient was intubated with acute respiratory failure in the emergency room. Chest x-ray showed appropriate placement of endotracheal tube. CTA of the chest, thorax was done. No pulmonary embolus. Suspicious area for mass in the left lower lobe bronchus. She was moved to the Critical Care Unit. She was seen in consultation by Dr. Siddharth Anand. Decision was made to do an emergent bronchoscopy, which revealed mucus plug of the left lower lobe bronchus, which was removed with irrigation. LABORATORY DATA: On admission, CBC was unremarkable. INR was 1. Arterial blood gas; pH 7.35, pCO2 39%, O2 was 210 on 50 percent O2 and a PEEP of 5.0. Lactic acid was 5.5. Chemistries revealed a blood sugar of 203 with a CO2 of 18, otherwise unremarkable. The patient was treated aggressively with nebulizers, long-acting beta agonist, steroids, etc. After bronchoscopy, she improved rapidly. On 12/22/18, she was given spontaneous breathing trial, subsequently extubated. She was also found to have a UTI with E coli resistant to quinolones, was treated with IV cephalosporin. She has been tapered off IV steroids, off IV medicine. She is currently doing well. Chest is clear. Heart regular rate and rhythm. Vital signs stable. She is being discharged on the above listed of medications. She is to follow up with her PCP in one week. Job ID: [id number]
[2018-12-25 12:37] VITALS: BP 127/82; TEMP 97.7
--- NOTE | 2018-12-25 16:19 | PRG ---
DATE OF SERVICE: 12/25/2018 SERVICE: Pulmonary Medicine. INTERVAL HISTORY: The patient is doing outstanding from respiratory standpoint. She is breathing comfortably. She has been up, walking in the hallways. She is off oxygen. She actually has essentially returned to her usual state of health and has no specific complaints. PHYSICAL EXAMINATION: VITAL SIGNS: Afebrile. Pulse 95, blood pressure 127/82, respirations 22, and saturations 95% on room air. GENERAL: The patient is awake and alert, in no apparent distress. LUNGS: Excellent air entry. There is no longer any wheezing or rhonchi. HEART: Normal rate, regular. ABDOMEN: Soft, nontender, and nondistended. Bowel sounds are positive. MUSCULOSKELETAL: No cyanosis or clubbing. There is no pitting in the bilateral lower extremities. NEUROLOGIC: Grossly nonfocal. ASSESSMENT: 1. Asthma with acute exacerbation, resolved. 2. Endobronchial mucus plug, status post therapeutic bronchoscopy. 3. Acute hypoxic respiratory failure, resolved. 4. Urinary tract infection secondary to Escherichia coli. 5. Sinusitis based on CT of the head. DISCUSSION AND PLAN: The patient will continue her medications as previously detailed including the Symbicort and Singulair. From my perspective, she is stable for transition out of the hospital today on a 10-day prednisone taper. Job ID: [id number]
== END 2018-12-25 12:30 | disposition home or self-care (01) | DRG 208 ==
LOC: ERS 08:13 → CCU 12:04 → SURG A 12-22 17:53
PROVIDERS: ADMIT Internal Medicine; ATTEND Internal Medicine
PROC: 0B9J8ZX Drainage of Left Lower Lung Lobe, Via Natural or Artificial Opening Endoscopic, Diagnostic (ICD-10-PCS; principal; 2018-12-21)
PROC: 5A1935Z Respiratory Ventilation, Less than 24 Consecutive Hours (ICD-10-PCS; 2018-12-21)
DX: J96.21 Acute and chronic respiratory failure with hypoxia (principal); J18.9 Pneumonia, unspecified organism; J45.901 Unspecified asthma with (acute) exacerbation; N39.0 Urinary tract infection, site not specified; T17.590A Other foreign object in bronchus causing asphyxiation, initial encounter; E87.2 Acidosis; J44.0 Chronic obstructive pulmonary disease with (acute) lower respiratory infection; B96.20 Unspecified Escherichia coli [E. coli] as the cause of diseases classified elsewhere; E86.0 Dehydration; J32.9 Chronic sinusitis, unspecified; Z91.81 History of falling; I10 Essential (primary) hypertension; M19.90 Unspecified osteoarthritis, unspecified site; Z87.442 Personal history of urinary calculi; R91.8 Other nonspecific abnormal finding of lung field; E78.5 Hyperlipidemia, unspecified
CPT/HCPCS: 36415; 70450; 71045; 71275; 80048; 80053; 80306; 80307; 81003; 81015; 82550; 82805; 83605; 83690; 83735; 84100; 84484; 85025; 85610; 85730; 87040; 87070; 87077; 87086; 87186; 87205; 93005; 94002; 94003; 94640; 94644; J0456; J0696; J1170; J1650; J1956; J2060; J2250; J2405; J2704; J2920; J2930; J3010; J7050; J7611; J7620; Q9966; S0028

== ENCOUNTER 2019-04-17 12:17 | Outpatient (CLI) | payer MEDICARE ==
[2019-04-17 12:51] LABS: Analyzer IN Cardio OR; Base Excess (BEa) 2.8 mEq/L (-2.0 to +3.0); CO2 Tension 39.9 mmHg (35.0-45.0); Calcium, Ionized 1.16 mmol/L (1.12-1.30); Carboxyhemoglobin (COHb) 0.9 gm% (0.0-3.0); Hemoglobin (Hb) 13.5 g/dL (12.0-16.0); O2 Tension (PaO2) 78.5 mmHg (> 80.0); Potassium - ABG Lab 4.12 mmol/L (3.70-5.30); pH, Arterial 7.45 (7.35-7.45)
[2019-04-17 12:54] LABS: ALV-art Gradient 21.355 (0-20)
== END 2019-04-17 12:18 | disposition home or self-care (01) ==
LOC: CP 12:17
PROVIDERS: ATTEND Internal Medicine
DX: J45.909 Unspecified asthma, uncomplicated (principal)
CPT/HCPCS: 82805; 94060; 94727; 94729

== ENCOUNTER 2019-05-17 19:30 | Outpatient (CLI) | payer MEDICARE | END 2019-05-17 19:31 | disposition home or self-care (01) | LOC: SLEEPLAB 19:30 | PROVIDERS: ATTEND Internal Medicine | DX: G47.33 Obstructive sleep apnea (adult) (pediatric) (principal); R53.83 Other fatigue; R35.1 Nocturia; I10 Essential (primary) hypertension | CPT/HCPCS: 95811 ==

== ENCOUNTER 2019-07-25 19:30 | Outpatient (CLI) | payer MEDICARE | END 2019-07-25 19:31 | disposition home or self-care (01) | LOC: SLEEPLAB 19:30 | PROVIDERS: ATTEND Internal Medicine | DX: G47.33 Obstructive sleep apnea (adult) (pediatric) (principal); R53.83 Other fatigue; E66.9 Obesity, unspecified; I10 Essential (primary) hypertension; G47.31 Primary central sleep apnea | CPT/HCPCS: 95811 ==

== ENCOUNTER 2020-04-20 12:21 | Outpatient (CLI) | payer MEDICARE ==
--- NOTE | 2020-04-20 13:29 | MMO ---
Bilateral MAMMO Bilat Screen [facility]. CLINICAL HISTORY: Patient is 64 years old and is seen for screening. The patient has no family history of breast cancer. The patient has a history of ovarian cancer. VIEWS: The views performed were: bilateral craniocaudal with tomosynthesis and bilateral mediolateral oblique with tomosynthesis. FILMS COMPARED: The present examination has been compared to prior imaging studies performed at [facility] on 05/27/2014, 06/05/2015 and 03/02/2018. This study has been interpreted with the assistance of computer-aided detection. MAMMOGRAM FINDINGS: There are scattered fibroglandular densities. There are stable benign appearing calcifications seen in both breasts. There are also vascular calcifications. There are no suspicious masses, suspicious calcifications, or new areas of architectural distortion. IMPRESSION: THERE IS NO MAMMOGRAPHIC EVIDENCE OF MALIGNANCY. A ROUTINE FOLLOW-UP MAMMOGRAM IN 1 YEAR IS RECOMMENDED. THE RESULTS OF THIS EXAM WERE SENT TO THE PATIENT. ACR BI-RADS Category 2 - Benign finding MAMMOGRAPHY NOTE: 1. A negative mammogram report should not delay a biopsy if a dominant of clinically suspicious mass is present. 2. Approximately 10% to 15% of breast cancers are not detected by mammography. 3. Adenosis and dense breasts may obscure an underlying neoplasm. Reported by: FAY SALES MD Electonically Signed: [id number]
== END 2020-04-20 12:22 | disposition home or self-care (01) ==
LOC: BICMAMMO 12:21
PROVIDERS: ATTEND Family Medicine
DX: Z12.31 Encounter for screening mammogram for malignant neoplasm of breast (principal); Z85.43 Personal history of malignant neoplasm of ovary
CPT/HCPCS: 77063; 77067

== ENCOUNTER 2020-10-19 11:25 | Outpatient (CLI) | payer MEDICARE ==
--- NOTE | 2020-10-19 12:15 | RAD ---
3 views of the lumbar spine: 10/19/2020 COMPARISON: 09/29/2017 HISTORY: Wedge compression fracture of the 12th thoracic vertebral body FINDINGS: There is a mild anterior wedge compression fracture at T12, stable. Stable superior endplat e fractures of L1, L2, L4, and L5. L3 vertebral body appears unremarkable. Multilevel lower lumbar spine facet hypertrophic change. Clips in the right upper quadrant suggest prior cholecystectomy. IMPRESSION: Numerous spinal fractures, not significantly changed.
--- NOTE | 2020-10-19 12:17 | RAD ---
Radiograph thoracic spine 2 views: 10/19/2020 HISTORY: 64-year-old female with mid back pain. Follow-up "wedge compression fracture T12 thoracic vertebra" COMPARISON: CT angiogram chest of 12/21/2018 and thoracic spine plain radiograph of 09/16/2015 FINDINGS: Old compression fractures of T7 and T8, with approximately 50-75% maximum anterior loss of height, an d overall diffuse loss of height, unchanged since 12/21/2018. The T7 compression fracture was not present on 09/16/2015. These result in very exaggerated kyphosis, worse than on 09/16/2015. Mild loss of height of T9 and T10, unchanged since 09/16/2015. Mild to moderate loss of height of T12 vertebral body with approximately 20-35% overall loss of heigh t, not significantly changed since 12/21/2018, somewhat worse than on 09/16/2015. Old compression fracture deformities of L1 and L2 also, both worse than on 09/16/2015. Diffuse, severe osteopenia. No high-grade scoliosis. IMPRESSION: 1.) Old osteoporotic compression fractures of T7 and T8, resulting in severe kyphosis. 2) old compression fracture of T12. 3) mild or old compression fractures of T9 and T10. 4.) no significant interval change in the thoracic spine since 12/21/2018 5) diffuse severe osteoporosis
== END 2020-10-19 11:26 | disposition home or self-care (01) ==
LOC: BICRAD 11:25
PROVIDERS: ATTEND Family Medicine
DX: S22.080G Wedge compression fracture of T11-T12 vertebra, subsequent encounter for fracture with delayed healing (principal); M80.88XA Other osteoporosis with current pathological fracture, vertebra(e), initial encounter for fracture; M40.204 Unspecified kyphosis, thoracic region; S32.019A Unspecified fracture of first lumbar vertebra, initial encounter for closed fracture; S32.029A Unspecified fracture of second lumbar vertebra, initial encounter for closed fracture; S32.039A Unspecified fracture of third lumbar vertebra, initial encounter for closed fracture; S32.049A Unspecified fracture of fourth lumbar vertebra, initial encounter for closed fracture; S32.059A Unspecified fracture of fifth lumbar vertebra, initial encounter for closed fracture; E78.2 Mixed hyperlipidemia
CPT/HCPCS: 36415; 72070; 72100; 80053; 80061; 82306; 85025

== ENCOUNTER 2020-11-10 11:06 | Outpatient (CLI) | payer MEDICARE ==
[2020-11-11 11:45] LABS: SARS-CoV-2 PCR by NAA Not Detected (NotDetected)
== END 2020-11-10 11:07 | disposition home or self-care (01) ==
LOC: LABBT 11:06
PROVIDERS: ATTEND Specialist
DX: Z01.812 Encounter for preprocedural laboratory examination (principal); Z20.822 Contact with and (suspected) exposure to COVID-19
CPT/HCPCS: U0003; U0005; 87635

== ENCOUNTER 2020-11-13 10:04 | Day surgery (SDC) | payer MEDICARE ==
[2020-11-12 10:52] VITALS: BMI 34.7
[~2020-11-13 10:04] MED LIST: Glycopyrrolate 0.2 MG/ML 5 ML SYRINGE ONE; Lidocaine 1% PF 5 ML VIAL ONE; Ondansetron PF 4 MG/2 ML Vial ONE; PROPOFOL 200 MG/20 ML VIAL ONE
--- NOTE | 2020-11-13 13:06 | MRI ---
THORACIC SPINE MRI WITHOUT CONTRAST: HISTORY: Compression fracture. Osteoporosis. COMPARISON: None. CORRELATION: Thoracic spine radiograph 10/11/[address] angiogram of the chest 12/21/2018. FINDINGS: There is appropriate T1 marrow signal intensity of the visualized thoracic and lumbar vertebrae. Ther e is no significant STIR hyperintensity to suggest ligamentous injury or definite acute edema, with the exception of the posterior T7 vertebral body. There is a linear T2 and STIR hyperintense focus wi th associated T2 hyperintensity. Small focus of intraosseous edema possibly due to a subacute fracture is suspected. There is marked kyphosis. Moderate loss of vertebral body height at T5, T6 and T7. There is a vertebral plana at T8. Mild to moderate loss of vertebral body height at T10, T11, L1 and L2. Visualized mediastinum, lung parenchyma and solid organs do not demonstrate any acute abnormality. Th ere are left parapelvic cysts. Conus medullaris terminating at the L1 level. The thoracic cord has a normal size and signal intensity. No evidence of high-grade central canal george nosis or high-grade neural foraminal narrowing. IMPRESSION: Multiple compression deformities throughout the thoracic and lumbar spine. There may be a small compo nent of acuity at the T7 level. Transcribed Date/Time: 11/13/2020 1:12 PM
--- NOTE | 2020-11-13 13:29 | MRI ---
MR the lumbar spine without contrast: 11/13/2020 History: Compression fracture, osteoporosis COMPARISON: None. TECHNIQUE: Multiplanar multisequence MR images were obtained of lumbar spine without IV contrast FINDINGS: On the basis of 5 lumbar type vertebral bodies, conus medullaris terminates at theL1 level. Sagittal STIR imaging demonstrates no focal area of osseous marrow edema. There are superior endplate fractures with a burst configuration at T12 and L1 with mild osseous retropulsion at the superior aspect of the T12 and L1 levels. These fractures demonstrate no increased STIR signal and thus are mo st consistent with remote fractures. In addition, there is a burst fracture involving the L2 vertebral body with mild osseous retropulsion inferiorly, also demonstrating no associated edema cons istent with a chronic fracture. The degree of vertebral body height loss measures approximately 35% at T12, 40% at L1, and 35-40% at L2. A remote mild superior endplate fracture is noted at the L4 level. T12-L1:No significant central canal stenosis. Intervertebral disc height and signal intensity appears within normal limits. No significant neural foraminal stenosis. L1-2:There is mild bilateral facet hypertrophy. Intervertebral disc height and signal intensity is wi thin normal limits with no significant central canal or neural foraminal stenosis. L2-3:Mild bilateral facet hypertrophy. No significant central canal or neural foraminal stenosis. L3-4:Mild bilateral facet hypertrophy. No significant central canal or neural foraminal stenosis. L4-5:Mild bilateral facet hypertrophy. Intervertebral disc height and signal intensity appears within normal limits with no significant central canal or neural foraminal stenosis. L5-S1:There is disc space narrowing with disc desiccation. Mild bilateral facet hypertrophy with no s ignificant central canal or neural foraminal stenosis. Image retroperitoneal structures demonstrateno acute findings.. IMPRESSION: Numerous old fractures of the lumbar spine. No evidence for an acute fracture is seen. Mild degenerat glenys change.
== END 2020-11-13 14:40 | disposition home or self-care (01) ==
LOC: SDC/OP 10:04
PROVIDERS: ATTEND Specialist
DX: S32.000A Wedge compression fracture of unspecified lumbar vertebra, initial encounter for closed fracture (principal); S22.000A Wedge compression fracture of unspecified thoracic vertebra, initial encounter for closed fracture; M80.88XA Other osteoporosis with current pathological fracture, vertebra(e), initial encounter for fracture; J44.9 Chronic obstructive pulmonary disease, unspecified; I10 Essential (primary) hypertension; Z79.899 Other long term (current) drug therapy; Z88.0 Allergy status to penicillin; Z88.1 Allergy status to other antibiotic agents; Z88.5 Allergy status to narcotic agent; Z88.6 Allergy status to analgesic agent; Z88.8 Allergy status to other drugs, medicaments and biological substances
CPT/HCPCS: 72146; 72148; J2405; J2704

== ENCOUNTER 2021-08-20 10:05 | Outpatient (CLI) | payer MEDICARE | END 2021-08-20 10:06 | disposition home or self-care (01) | LOC: BICMAMMO 10:05 | PROVIDERS: ATTEND Family Medicine | DX: Z12.31 Encounter for screening mammogram for malignant neoplasm of breast (principal); Z85.43 Personal history of malignant neoplasm of ovary | CPT/HCPCS: 77063; 77067 ==

== ENCOUNTER 2022-06-02 04:46 | Inpatient (IN) | payer MEDICARE ==
[2022-06-02] MEDS ORDERED: Morphine 4 MG/ML VIAL ONE (05:11)
[2022-06-02] MEDS ORDERED: Ondansetron PF 4 MG/2 ML Vial ONE (05:11)
[2022-06-02 05:28] LABS: #Eosinphils 0.2 thou/uL (0.0-0.7); #Lymphocytes 1.2 thou/uL (1.20-3.40); #Monocytes 0.2 thou/uL (0.11-0.59); #Neutrophils 1.7 thou/uL (1.40-6.50); %Basophils 0.7 % (0.0-1.0); %Eosinophils 5.9 % (0.0-10.0); %Lymphocytes 35.7 % (21.0-51.0); %Monocytes 6.5 % (0.0-10.0); %Neutrophils 51.1 % (42.0-75.0); Hemoglobin 13.4 g/dL (12.0-16.0); Mean Corpuscular HGB CONC 33.2 g/dL (32.0-36.0); Mean Corpuscular Hemoglobin 31.1 pg (27.0-31.0); Mean Corpuscular Volume 93.6 fL (78.0-98.0); Mean Platelet Volume 7.3 fL (7.4-10.4); Platelet Count 194 thou/uL (130-400); RBC Distribution Width 11.9 % (11.5-14.5); Red Blood Cell (RBC) Count 4.31 mill/uL (4.20-5.40); White Blood Cell (WBC) Count 3.3 thou/uL (4.8-10.8)
[2022-06-02 05:53] LABS: ALT (SGPT) Less than 7 U/L (8-55); AST (SGOT) 26 U/L (5-34); Albumin 4.1 g/dL (3.4-4.8); Alkaline Phosphatase 91 U/L (40-110); Anion Gap 12 mmol/L (10-20); BUN (Urea Nitrogen) 9 mg/dL (9.8-20.1); Bilirubin, Total 0.6 mg/dL (0.2-1.2); Calc. Creatinine Clearance 0 mL/min (70-130); Calcium 9.9 mg/dL (7.8-10.44); Carbon Dioxide 29 mmol/L (23-31); Chloride 103 mmol/L (98-107); Estimated GFR 87; Globulin 3.5 g/dL (2.4-3.5); Glucose 100 mg/dL (80-115); Potassium 3.4 mmol/L (3.5-5.1); Protein, Total 7.6 g/dL (5.8-8.1); Sodium 141 mmol/L (136-145)
[2022-06-02 06:57] LABS: Bilirubin Negative (Negative); Blood, Urine Negative (Negative); Clarity Clear (Clear); Glucose, Urine (Dipstick) Normal (Negative); Ketone, Urine Negative (Negative); Leukocyte 500 Leu/uL (Negative); Nitrite Negative (Negative); Protein, Urine (Dipstick) Negative (Neg-Trace); RBC/HPF 0-3 HPF (0-3); Specific Gravity, Urine 1.012 (1.002-1.036); Squamous Epithelial 0-3 HPF (0-3); Urobilinogen Normal mg/dL (Less than 2); WBC/HPF 0-3 HPF (0-3); pH, Urine 5.5 (5.0-9.0)
[2022-06-02 07:13] LABS: Bacteria/HPF Rare-Few HPF (None Seen)
[2022-06-02] MEDS ORDERED: Ondansetron PF 4 MG/2 ML Vial IVP PRN (08:11)
[2022-06-02] MEDS ORDERED: Albuterol Sulfate 2.5 mg/0.5 ml Neb NEB PRN (08:46)
[2022-06-02] MEDS ORDERED: Potassium Chloride 20 MEQ TAB PO SCH (09:00)
[2022-06-02] MEDS ORDERED: Docusate 100 MG CAP PO PRN (09:42)
[2022-06-02] MEDS ORDERED: Polyethylene Glycol 3350 17 GM Packet PO PRN (09:42)
[2022-06-02] MEDS: Cyclobenzaprine 10 MG TAB PO PRN ×2 (10:26→18:31)
[2022-06-02] MEDS: traMADol HCl 50 MG TAB PO PRN ×2 (10:27→18:31)
[2022-06-02] MEDS: Enoxaparin Sodium 40 MG/0.4 ML SYRINGE SC SCH (10:27)
[2022-06-02 12:57] LABS: SARS-CoV-2 NAA Rapid Test Not Detected (NotDetected)
[2022-06-02] MEDS ORDERED: Morphine 4 MG/ML VIAL SLOW IVP SCH (21:00)
[2022-06-03 05:22] LABS: #Eosinphils 0.3 thou/uL (0.0-0.7); #Lymphocytes 1.6 thou/uL (1.20-3.40); #Monocytes 0.3 thou/uL (0.11-0.59); %Basophils 0.8 % (0.0-1.0); %Eosinophils 7.7 % (0.0-10.0); %Lymphocytes 37.3 % (21.0-51.0); %Monocytes 6.6 % (0.0-10.0); %Neutrophils 47.7 % (42.0-75.0); Hemoglobin 12.5 g/dL (12.0-16.0); Mean Corpuscular HGB CONC 31.7 g/dL (32.0-36.0); Mean Corpuscular Hemoglobin 30.1 pg (27.0-31.0); Mean Corpuscular Volume 94.8 fL (78.0-98.0); Mean Platelet Volume 7.1 fL (7.4-10.4); Platelet Count 181 thou/uL (130-400); RBC Distribution Width 11.8 % (11.5-14.5); Red Blood Cell (RBC) Count 4.14 mill/uL (4.20-5.40); White Blood Cell (WBC) Count 4.2 thou/uL (4.8-10.8)
[2022-06-03 05:40] LABS: Anion Gap 10 mmol/L (10-20); BUN (Urea Nitrogen) 9 mg/dL (9.8-20.1); Calc. Creatinine Clearance 86 mL/min (70-130); Calcium 9.3 mg/dL (7.8-10.44); Carbon Dioxide 30 mmol/L (23-31); Chloride 105 mmol/L (98-107); Estimated GFR 95; Glucose 88 mg/dL (80-115); Sodium 141 mmol/L (136-145)
[2022-06-03] MEDS: traMADol HCl 50 MG TAB PO PRN (06:24)
[2022-06-03] MEDS: Levothyroxine Sodium 100 MCG TAB PO SCH (06:24)
[2022-06-03] MEDS: Cyclobenzaprine 10 MG TAB PO PRN (06:26)
[2022-06-03] MEDS: Enoxaparin Sodium 40 MG/0.4 ML SYRINGE SC SCH (09:37)
[2022-06-03] MEDS ORDERED: Fentanyl 100 MCG/2 ML VIAL ONE (12:03)
[2022-06-03] MEDS ORDERED: Ondansetron PF 4 MG/2 ML Vial ONE (12:15)
[2022-06-03] MEDS ORDERED: PROPOFOL 200 MG/20 ML VIAL ONE (12:15)
[2022-06-03] MEDS ORDERED: Promethazine HCl 25 MG/ML VIAL IM PRN (13:02)
[2022-06-03] MEDS ORDERED: Promethazine HCl 25 MG/ML VIAL IVPB PRN (13:02)
[2022-06-03] MEDS ORDERED: Ketorolac Tromethamine 30 MG/ML VIAL IVP PRN (13:02)
[2022-06-03] MEDS ORDERED: Ketorolac Tromethamine 30 MG/ML VIAL ONE (13:24)
[2022-06-03] MEDS: HYDROcodone/Acetaminophen 5/325 mg Tablet PO PRN (22:28)
[2022-06-04] MEDS: Ketorolac Tromethamine 30 MG/ML VIAL IVP PRN ×3 (01:10→14:54)
[2022-06-04] MEDS: Cyclobenzaprine 10 MG TAB PO PRN ×2 (01:38→22:17)
[2022-06-04] MEDS: HYDROcodone/Acetaminophen 5/325 mg Tablet PO PRN ×4 (02:23→14:51)
[2022-06-04 05:08] LABS: #Eosinphils 0.2 thou/uL (0.0-0.7); #Lymphocytes 1.5 thou/uL (1.20-3.40); #Monocytes 0.2 thou/uL (0.11-0.59); #Neutrophils 1.7 thou/uL (1.40-6.50); %Basophils 0.3 % (0.0-1.0); %Eosinophils 5.5 % (0.0-10.0); %Monocytes 6.6 % (0.0-10.0); %Neutrophils 46.5 % (42.0-75.0); Hemoglobin 11.8 g/dL (12.0-16.0); Mean Corpuscular HGB CONC 32.7 g/dL (32.0-36.0); Mean Corpuscular Hemoglobin 31.2 pg (27.0-31.0); Mean Corpuscular Volume 95.2 fL (78.0-98.0); Mean Platelet Volume 7.4 fL (7.4-10.4); Platelet Count 156 thou/uL (130-400); RBC Distribution Width 11.5 % (11.5-14.5); Red Blood Cell (RBC) Count 3.78 mill/uL (4.20-5.40); White Blood Cell (WBC) Count 3.6 thou/uL (4.8-10.8)
[2022-06-04 05:30] LABS: Anion Gap 12 mmol/L (10-20); BUN (Urea Nitrogen) 13 mg/dL (9.8-20.1); Calc. Creatinine Clearance 72 mL/min (70-130); Calcium 8.9 mg/dL (7.8-10.44); Carbon Dioxide 28 mmol/L (23-31); Chloride 104 mmol/L (98-107); Estimated GFR 79; Glucose 93 mg/dL (80-115); Potassium 4.4 mmol/L (3.5-5.1); Sodium 140 mmol/L (136-145)
[2022-06-04] MEDS: Levothyroxine Sodium 100 MCG TAB PO SCH (06:19)
[2022-06-04] MEDS: Enoxaparin Sodium 40 MG/0.4 ML SYRINGE SC SCH (08:01)
[2022-06-05] MEDS: HYDROcodone/Acetaminophen 5/325 mg Tablet PO PRN ×3 (00:31→10:23)
[2022-06-05 05:29] LABS: %Lymphocytes 37.9 % (21.0-51.0); %Neutrophils 49.6 % (42.0-75.0); Hemoglobin 11.8 g/dL (12.0-16.0); Mean Corpuscular HGB CONC 33.3 g/dL (32.0-36.0); Mean Corpuscular Hemoglobin 31.4 pg (27.0-31.0); Mean Corpuscular Volume 94.3 fL (78.0-98.0); Mean Platelet Volume 7.4 fL (7.4-10.4); Platelet Count 164 thou/uL (130-400); RBC Distribution Width 11.5 % (11.5-14.5); Red Blood Cell (RBC) Count 3.76 mill/uL (4.20-5.40); White Blood Cell (WBC) Count 3.5 thou/uL (4.8-10.8)
[2022-06-05 05:30] LABS: #Eosinphils 0.2 thou/uL (0.0-0.7); #Lymphocytes 1.3 thou/uL (1.20-3.40); #Monocytes 0.2 thou/uL (0.11-0.59); #Neutrophils 1.7 thou/uL (1.40-6.50); %Basophils 0.3 % (0.0-1.0); %Eosinophils 5.6 % (0.0-10.0); %Monocytes 6.6 % (0.0-10.0)
[2022-06-05 05:55] LABS: Anion Gap 12 mmol/L (10-20); BUN (Urea Nitrogen) 14 mg/dL (9.8-20.1); Calc. Creatinine Clearance 85 mL/min (70-130); Calcium 8.9 mg/dL (7.8-10.44); Carbon Dioxide 28 mmol/L (23-31); Chloride 100 mmol/L (98-107); Estimated GFR 94; Glucose 91 mg/dL (80-115); Potassium 4.2 mmol/L (3.5-5.1); Sodium 136 mmol/L (136-145)
[2022-06-05] MEDS: Levothyroxine Sodium 100 MCG TAB PO SCH (06:10)
[2022-06-05 08:23] VITALS: BP 114/71; TEMP 98.2
[2022-06-05] MEDS: Enoxaparin Sodium 40 MG/0.4 ML SYRINGE SC SCH (09:27)
[2022-06-05] MEDS: Cyclobenzaprine 10 MG TAB PO PRN (09:29)
[2022-06-05] MEDS ORDERED: Lactated Ringer's 1,000 ML IV SCH (09:30)
== END 2022-06-05 15:50 | disposition home or self-care (01) | DRG 544 ==
LOC: ERS 04:46 → MSONC 07:38 → OBSVTOIN 06-05 11:05
PROVIDERS: ADMIT Hospitalist; ATTEND Hospitalist
DX: M80.88XA Other osteoporosis with current pathological fracture, vertebra(e), initial encounter for fracture (principal); Z20.822 Contact with and (suspected) exposure to COVID-19; I10 Essential (primary) hypertension; J44.9 Chronic obstructive pulmonary disease, unspecified; E87.6 Hypokalemia; R33.9 Retention of urine, unspecified; E03.9 Hypothyroidism, unspecified; Z88.0 Allergy status to penicillin; Z88.1 Allergy status to other antibiotic agents; Z88.8 Allergy status to other drugs, medicaments and biological substances; Z88.5 Allergy status to narcotic agent; Z79.890 Hormone replacement therapy; Z79.51 Long term (current) use of inhaled steroids; Z79.899 Other long term (current) drug therapy; Z90.49 Acquired absence of other specified parts of digestive tract
CPT/HCPCS: 36415; 51702; 72158; 74176; 80048; 80053; 81003; 81015; 82306; 83605; 85025; 87086; 94640; 96361; 96374; 96375; J1650; J1885; J2270; J2405; J2704; J3010; J7120; J7620; U0002

== ENCOUNTER 2023-10-11 11:10 | Emergency (ER) | payer MEDICARE ==
[2023-10-11] MEDS ORDERED: Acetaminophen 325 MG TAB ONE (12:37)
[2023-10-11 14:14] LABS: #Monocytes 0.5 thou/uL (0.11-0.59); #Neutrophils 5.1 thou/uL (1.40-6.50); %Basophils 0.3 % (0.0-1.0); %Eosinophils 0.1 % (0.0-10.0); %Lymphocytes 19.6 % (21.0-51.0); %Monocytes 6.4 % (0.0-10.0); %Neutrophils 73.5 % (42.0-75.0); Hematocrit 31.9 % (36.0-47.0); Hemoglobin 10.5 g/dL (12.0-16.0); Mean Corpuscular HGB CONC 32.9 g/dL (32.0-36.0); Mean Corpuscular Hemoglobin 31.5 pg (27.0-31.0); Mean Corpuscular Volume 95.8 fl (78.0-98.0); Mean Platelet Volume 9.5 fL (7.4-10.4); Platelet Count 266 10x3/uL (130-400); RBC Distribution Width 13.2 % (11.5-14.5); Red Blood Cell (RBC) Count 3.33 mill/uL (4.20-5.40)
[2023-10-11 14:37] LABS: ALT (SGPT) 7 U/L (8-55); AST (SGOT) 30 U/L (5-34); Albumin 3.7 g/dL (3.4-4.8); Alkaline Phosphatase 65 U/L (40-110); Anion Gap 15 mmol/L (10-20); BUN (Urea Nitrogen) 12 mg/dL (9.8-20.1); Bilirubin, Total 1.1 mg/dL (0.2-1.2); Calc. Creatinine Clearance 0 mL/min (70-130); Calcium 9.6 mg/dL (7.8-10.44); Carbon Dioxide 32 mmol/L (23-31); Chloride 98 mmol/L (98-107); Estimated GFR 95; Globulin 3.9 g/dL (2.4-3.5); Glucose 94 mg/dL (80-115); Potassium 3.1 mmol/L (3.5-5.1); Protein, Total 7.6 g/dL (5.8-8.1); Sodium 142 mmol/L (136-145)
[2023-10-11] MEDS ORDERED: traMADol HCl 50 MG TAB ONE (16:44)
[2023-10-11] MEDS ORDERED: Ondansetron PF 4 MG/2 ML Vial ONE (18:18)
== END 2023-10-11 19:04 ==
LOC: ERS 11:10
DX: S82.142A Displaced bicondylar fracture of left tibia, initial encounter for closed fracture (principal); I10 Essential (primary) hypertension; J44.9 Chronic obstructive pulmonary disease, unspecified; W51.XXXA Accidental striking against or bumped into by another person, initial encounter; Z79.899 Other long term (current) drug therapy
CPT/HCPCS: 29505; 80053; 85025; J2405